=== PATIENT | male | born 1960 | race Caucasian/White ===

== ENCOUNTER 2023-12-25 21:06 | Emergency (ER) | payer BC, SELFPAY ==
[2023-12-25 21:13] VITALS: BP 152/82
[2023-12-25 21:18] VITALS: BMI 24.0
[2023-12-25 22:07] LABS: % Basophils 0.6 % (0-2); % Eosinophils 1.2 % (0-6); % Immature Granulocytes 0.5 % (0-0.5); % Lymphocytes 15.1 % (20.5-51.1); % Monocytes 7.5 % (1.7-9.3); % Neutrophils 75.1 % (42.2-75.2); Absolute Basophils 0.1 10^3/uL (0-0.2); Absolute Eosinophils 0.2 10^3/uL (0-0.7); Absolute Immature Granulocytes 0.1 10^3/uL (0-0.05); Absolute Neutrophils 9.8 10^3/uL (1.4-6.5); Hematocrit 46.9 % (39.0-52.0); Hemoglobin 16.9 g/dL (13.0-18.0); Mean Corpuscular Hgb 29.9 pg (27.0-31.0); Mean Platelet Volume 8.4 fL (7.4-10.4); Nucleated Red Blood Cells % 0 % (-); Platelet Count 215 10^3/uL (130-400); Red Blood Cell Count 5.65 10^6/uL (4.70-6.10); Red Cell Dist. Width 13.2 % (11.5-14.5)
--- NOTE | 2023-12-25 22:20 | ED.GENMED ---
History of Present Illness
General
Chief Complaint: Crisis Evaluation
Source: patient
Exam Limitations: none
Time Seen by Provider: 12/25/23 21:27
Nursing documentation reviewed up to this point in time: agreed with
Travel History
Have you had any contact with someone who has COVID-19?: No
Do you have any symptoms of coronavirus? Fever > 100 degrees, chills, cough, shortness of breath, sore throat, loss of taste or smell, muscle aches, or headache?: No
History of Present Illness
History of Present Illness:
63-year-old male 302 by police apparently was found with a knife with suicidal thoughts asking police to shoot him
Patient tells me he has had some issues at his job he been feeling very depressed
[place] police were there he asked police to kill him
Review of Systems
Review of Systems
Psychiatric: Reports suicidal
Phy Exam
Physical Exam
Physical Exam:
Physical Exam
General: no apparent distress, not acutely ill
Neck: No jaundice
Lungs: no acute respiratory distress. clear bilaterally
Neuro: alert and oriented. no focal neurological deficits
Skin: no rash
Psychiatric: cooperative
Extremities: no edema.
Course
Orders/Labs/Results
Orders:
Orders
12/25/23 21:17
Case Management Consult ONCE
Case Management Consult: Suicide Risk
12/25/23 22:01
Acetaminophen Urgent
Alcohol Urgent
Complete Blood Count/With Diff Urgent
Comprehensive Metabolic Panel Urgent
Salicylate Urgent
Abnormal Lab Results
12/25/23
22:01
WBC 13.0 H 10^3/uL
(4.8-10.8)
Abs Immat Gran (auto) 0.1 H 10^3/uL
(0-0.05)
Absolute Neuts (auto) 9.8 H 10^3/uL
(1.4-6.5)
Absolute Monos (auto) 1.0 H 10^3/uL
(0.1-0.6)
Lymphocytes % 15.1 L %
(20.5-51.1)
Creatinine 0.6 L mg/dL
(0.7-1.3)
Salicylates < 1.0 L mg/dl
(2.0-20.0)
Acetaminophen < 10 L ug/ml
(10-30)
12/25/23 22:01
12/25/23 22:01
Vital Signs
Initial and Last Documented VS:
Initial Vital Signs
Temp Pulse Resp BP Pulse Ox
97.5 F 66 18 152/82 99
12/25/23 21:13 12/25/23 21:13 12/25/23 21:13 12/25/23 21:13 12/25/23 21:13
Last Documented Vital Signs
Temp Pulse Resp BP Pulse Ox
97.5 F 66 18 152/82 99
12/25/23 21:13 12/25/23 21:13 12/25/23 21:13 12/25/23 21:13 12/25/23 21:13
MDM/Problems Addressed
Differential Diagnosis Includes:
Depression anxiety psychosis suicidal ideation
MDM/Problems Addressed:
Suicidal
*Critical Care Note
Total Time (30-74mins, 75-104mins- exclusive of procedures): Not Applicable
Update Note
Update Note:
Patient high risk, will hold 302
ED Attending Note
-
Portions of this chart may have been created with voice recognition software.� Occasional wrong word or��sound alike� substitutions may have occurred due to the inherent limitations of voice recognition software.
Discharge Plan
Departure
Patient Disposition: Psych Facility
Date of Disposition: 12/25/23
Time of Disposition: 22:54
Patient Status:: 302
Patient with high blood pressure during this ER visit?: No
Condition: Good
Covid-19: Not Applicable
Discharge Problem:
Suicidal ideation
Interventions
Interventions:
*Risk Screen - Suicide Last Done: 12/25/23 21:16
*General Assessment Last Done: 12/25/23 21:16
*Neglect/Abuse Screening Last Done: 12/25/23 21:16
*ED COVID-19 Vaccine History Last Done: 12/25/23 21:14
[2023-12-25 22:22] LABS: Chloride 104 mmol/L (98-107); Potassium 4.3 mmol/L (3.5-5.1); Sodium 138 mmol/L (135-145)
[2023-12-25 22:25] LABS: ALT (SGPT) 32 U/L (0-50); AST (SGOT) 41 U/L (17-59); Acetaminophen < 10 ug/ml (10-30); Albumin 4.6 g/dl (3.5-5.0); Alkaline Phosphatase 83 U/L (38-126); Blood Urea Nitrogen 11 mg/dl (9-20); Calcium 10.2 mg/dl (8.4-10.2); Carbon Dioxide 26 mmol/L (22-30); Estimated Creatinine Clearance > 125 ml/min; Glucose 96 mg/dl (70-99); Salicylate < 1.0 mg/dl (2.0-20.0); Total Protein 7.5 g/dl (6.3-8.2); eGFR > 60.00
[2023-12-25 22:26] LABS: Alcohol None Detected
[2023-12-25 22:34] LABS: Total Bilirubin 0.9 mg/dl (0.2-1.3)
[2023-12-26] MEDS: ELIQUIS 5 MG PO ×3 (01:27→20:05)
[2023-12-26] MEDS: LOPRESSOR 25 MG PO ×3 (01:48→20:05)
[2023-12-26 07:17] VITALS: BP 114/70
[2023-12-26] MEDS: PLAVIX 75 MG PO (09:02)
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
[2023-12-26 15:47] VITALS: BP 107/67
[2023-12-26] MEDS: CRESTOR 40 MG PO (18:45)
[2023-12-27 07:26] VITALS: BMI 24.1
[2023-12-27 07:38] VITALS: BP 124/76
[2023-12-27] MEDS: LOPRESSOR 25 MG PO (08:09)
[2023-12-27] MEDS: PLAVIX 75 MG PO (08:09)
[2023-12-27] MEDS: ELIQUIS 5 MG PO (08:09)
--- NOTE | 2023-12-27 10:39 | W.PN.UPDATE ---
Update Note
Progress Note Update
patient seen chart reviewed. 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
of the people he worked with . he was also very emotionally invested in his work. the prospect of reinventing himself after so much effort had been expended was daunting. others tried to offer their condolences but in the end that only made him
feel worse. he felt everything was just going dark for him. he is seeing some glimmers of light. he recognizes that he does have assets that will enable him to reinvent himself and that it will take time. at this point he is not suicidal. i did
give him the name of a psychiatrist in [place] where he lives who may be able to see him after dc from hospital
== END 2023-12-27 11:40 ==
LOC: EMR 21:06
PROVIDERS: EMERGENCY PHYSICIAN Emergency Medicine; OTHER PHYSICIAN Psychiatry & Neurology Psychiatry
DX: R45.851 Suicidal ideations (principal)
CPT/HCPCS: 99285; 80053; 80143; 80179; 82077; 85025